=== PATIENT | female | born 1975 | race Caucasian/White ===

== ENCOUNTER 2023-05-27 15:45 | Emergency (ER) | payer BC ==
[~2023-05-27] VITALS: Ht 162.6 cm; Wt 113.4 kg
[2023-05-27] MEDS ORDERED: ZIAC 2.5-6.251 EACH PO (16:18)
[2023-05-27] MEDS ORDERED: PROZAC10 MG PO (16:18)
[2023-05-27] MEDS ORDERED: OMEPRAZOLE-BIC1 EAC1 PO (16:18)
== END 2023-05-28 12:29 | disposition home or self-care (01) ==
LOC: ER 15:45
DX: U07.1 COVID-19 (principal); A08.39 Other viral enteritis